=== PATIENT | male | born 1985 | race African-American/Black ===

== ENCOUNTER 2024-12-25 19:23 | Emergency (ER) | payer BC, OTHER ==
[~2024-12-25] VITALS: Ht 170.2 cm; Wt 108.9 kg
[2024-12-25 20:10] VITALS: BP 143/82; TEMP 99.9; O2SAT 93
[2024-12-25] MEDS ORDERED: IBUP-1490 PO (21:03)
[2024-12-25] MEDS ORDERED: CLIN300C12 PO (21:03)
[2024-12-25] MEDS ORDERED: CEFTRIAXONE 1 G VIAL ONE (21:05)
[2024-12-25] MEDS ORDERED: CLINDAMYCIN HCL 150 MG CAPSULE ONE (21:05)
[2024-12-25] MEDS ORDERED: LIDOCAINE 1% INJ 50 ML MDV IJ ONE (21:05)
[2024-12-25] MEDS ORDERED: IBUPROFEN 400 MG TABLET ONE (21:06)
[2024-12-25] MEDS: CEFTRIAXONE 1 G VIAL IM ONE (21:17)
[2024-12-25] MEDS: CLINDAMYCIN HCL 150 MG CAPSULE PO ONE (21:17)
[2024-12-25] MEDS: IBUPROFEN 400 MG TABLET PO ONE (21:17)
== END 2024-12-25 21:18 | disposition home or self-care (01) ==
LOC: ER 19:35
DX: L03.114 Cellulitis of left upper limb (principal); L03.313 Cellulitis of chest wall
CPT/HCPCS: 99283; 96372; J3490; J0696